=== PATIENT | male | born 1960 | race Caucasian/White ===

== ENCOUNTER 2020-03-07 10:41 | Emergency (ER) | payer BC ==
[~2020-03-07] VITALS: Ht 165.1 cm; Wt 100.2 kg
[~2020-03-07 10:41] MED LIST: DOXYCYCLINE 10100 MG PO; KEFLEX500 MG PO; LISINOPRIL10 MG PO; TRUBIOTICS
[2020-03-07] MEDS ORDERED: LIPITOR 20 MG T20 M1 PO (10:57)
[2020-03-07] MEDS ORDERED: LEVO-T25 MCG PO (10:58)
[2020-03-07 11:15] LABS: ABSOLUTE BASOPHILS 0.1 thou/uL (0.0-0.2); ABSOLUTE EOSINOPHILS 0.1 thou/uL (0.0-0.7); ABSOLUTE LYMPHOCYTES 2.7 thou/uL (0.8-5.3); ABSOLUTE MONOCYTES 0.4 thou/uL (0.0-1.2); ABSOLUTE NEUTROPHILS 4.7 thou/uL (1.6-8.1); EOSINOPHILS 1.9 %; HEMATOCRIT 43.5 % (42.0-52.0); HEMOGLOBIN 15.8 gm/dL (14.0-18.0); LYMPHOCYTES 33.6 %; MCH 33.1 pg (26.0-34.0); MCHC 36.4 g/dL (28.0-37.0); MCV 90.8 fL (80.0-100.0); MONOCYTES 4.4 %; MPV 10.5 fl. (7.2-11.1); NUCLEATED RBCS 0 /100WBC; PLATELET COUNT* 212 thou/uL (150-400); POLYS 59.1 %; RBC 4.79 mil/uL (4.50-6.00); RDW-CV 13.4 % (10.5-14.5)
[2020-03-07 12:03] LABS: CALCIUM 9.5 mg/dL (8.5-10.1); CREATININE 1.6 mg/dL (0.6-1.3); POTASSIUM 4.2 mmol/L (3.5-5.1)
[2020-03-07 12:16] LABS: TOTAL BILIRUBIN 0.8 mg/dL (<0.1-1.0); TOTAL PROTEIN 8.1 g/dL (6.4-8.2)
[2020-03-07 12:54] LABS: URINE BILIRUBIN NEGATIVE (Negative); URINE BLOOD TRACE (Negative); URINE CLARITY CLEAR; URINE COLOR YELLOW; URINE GLUCOSE-RANDOM 3+ (Negative); URINE KETONES 1+ (Negative); URINE LEUKOCYTES-REFLEX NEGATIVE (Negative); URINE NITRITE-REFLEX NEGATIVE (Negative); URINE PROTEIN 1+ (Negative); URINE SPECIFIC GRAVITY 1.015 (1.005-1.030); URINE UROBILINOGEN 0.2 E.U./dl (0.2-1.0)
[2020-03-07] MEDS ORDERED: METFORMIN HCL500 MG PO (12:57)
[2020-03-07 13:04] VITALS: BP 115/76
--- NOTE | 2020-03-08 16:21 | EKG ---
[place] [address] ELECTROCARDIOGRAM REPORT Name: MAIA CASTELAN Room: [facility]#: [id number] Admission: 03/07/20 Attend Phys: Discharge: 03/07/20 Date of : 64 Date of Service: 03/07/20 1136 Report #: [id number] THIS REPORT FOR: //name// [facility] ED Test Date: 2020-03-07 Test Time: 11:36:02 Pat Name: MAIA CASTELAN Department: Room: Gender: Inspector Air Carrier: JONO : 1960 Requested By: Ina [place] Order Number: [id number] MD: Vance Hartmann Measurements Intervals [place] Rate: 74 P: 49 [place]: 159 QRS: 2 QRSD: 104 T: 30 QT: 487 QTc: 541 Interpretive Statements Sinus rhythm Probable left atrial enlargement Abnormal R-wave progression, early transition Prolonged QT interval Compared to ECG 11/22/2016 22:53:40 Prolonged QT interval now present Sinus bradycardia no longer present ST (T wave) deviation no longer present Electronically Signed On 03-08-2020 16:21:16 CDT by Vance Hartmann [email or web address] <ELECTRONICALLY SIGNED> By: Vance Hartmann MD, [facility] 03/08/20 1621 1136 1136 Vance Hartmann MD, [facility] /EPI
== END 2020-03-07 13:05 | disposition home or self-care (01) ==
LOC: M.ERS 10:41
PROVIDERS: Physician Assistant
DX: E11.65 Type 2 diabetes mellitus with hyperglycemia (principal)

== ENCOUNTER 2021-06-28 10:44 | Emergency (ER) | payer OTHER ==
[~2021-06-28] VITALS: Ht 165.1 cm; Wt 102.1 kg
[~2021-06-28 10:44] MED LIST changes: +ALLOPURINOL 10100 M1 PO; +FISH OIL 1,001000 M3 PO; +FLONASE 0.05%50 MCG NASAL; +LEVO-T25 MCG PO; +LIPITOR 20 MG T20 M1 PO; +METFORMIN HCL500 M3 PO; +METFORMIN HCL500 MG PO; +PROAIR HFA8.5 GM INH; +SUPER THERAVIT1 EACH PO; +TERBINAFINE HC250 MG PO; +ZYRTEC10 MG PO
[2021-06-28 10:49] VITALS: BP 158/92
[2021-06-28 11:14] LABS: ABSOLUTE BASOPHILS 0.1 thou/uL (0.0-0.2); ABSOLUTE EOSINOPHILS 0.3 thou/uL (0.0-0.7); ABSOLUTE LYMPHOCYTES 2.7 thou/uL (0.8-5.3); ABSOLUTE MONOCYTES 0.4 thou/uL (0.0-1.2); ABSOLUTE NEUTROPHILS 4.4 thou/uL (1.6-8.1); EOSINOPHILS 3.9 %; HEMATOCRIT 42.3 % (42.0-52.0); HEMOGLOBIN 14.6 gm/dL (14.0-18.0); LYMPHOCYTES 34.4 %; MCH 31.4 pg (26.0-34.0); MCHC 34.4 g/dL (28.0-37.0); MONOCYTES 5.1 %; MPV 8.8 fl. (7.2-11.1); NUCLEATED RBCS 0 /100WBC; PLATELET COUNT* 223 thou/uL (150-400); POLYS 55.6 %; RBC 4.65 mil/uL (4.50-6.00); RDW-CV 13.9 % (10.5-14.5); WBC 7.9 thou/uL (4.0-11.0)
[2021-06-28 11:37] LABS: CALCIUM 8.9 mg/dL (8.5-10.1); CREATININE 1.3 mg/dL (0.6-1.3)
[2021-06-28 11:41] LABS: ALBUMIN 3.8 g/dL (3.4-5.0); TOTAL BILIRUBIN 0.6 mg/dL (<0.1-1.0); TOTAL PROTEIN 7.4 g/dL (6.4-8.2)
[2021-06-28] MEDS ORDERED: ACYCLOVIR 400400 MG PO (11:59)
[2021-06-28] MEDS ORDERED: PREDNISONE 20 M20 M1 PO (11:59)
--- NOTE | 2021-06-28 14:34 | EKG ---
[place] [address] ELECTROCARDIOGRAM REPORT Name: MAIA CASTELAN Room: [facility]#: [id number] Admission: 06/28/21 Attend Phys: Discharge: Date of : 64 Date of Service: 06/28/21 1104 Report #: [id number] THIS REPORT FOR: //name// [facility] ED Test Date: 2021-06-28 Test Time: 11:04:57 Pat Name: MAIA CASTELAN Department: Room: Gender: Insole Channeler: : 1960 Requested By: Osmar Alba Order Number: [id number] MD: Doc Trinidad Measurements Intervals [place] Rate: 68 P: 47 [place]: 166 QRS: 5 QRSD: 97 T: 25 QT: 382 QTc: 407 Interpretive Statements Sinus rhythm Compared to ECG 03/07/2020 11:36:02 Prolonged QT interval no longer present Electronically Signed On 06-28-2021 14:33:37 SENIOR DATABASE ADMINISTRATOR by Doc Trinidad [email or web address] <ELECTRONICALLY SIGNED> By: Doc Trinidad MD, [facility] 06/28/21 1433 1104 03 Doc Trinidad MD, [facility] /EPI
== END 2021-06-28 12:15 | disposition home or self-care (01) ==
LOC: M.ERS 10:44
PROVIDERS: Family Medicine
DX: G51.0 Bell's palsy (principal); E11.9 Type 2 diabetes mellitus without complications; Z79.899 Other long term (current) drug therapy

== ENCOUNTER 2021-07-21 06:07 | Emergency (ER) | payer OTHER ==
[~2021-07-21] VITALS: Ht 167.6 cm; Wt 101.2 kg
[~2021-07-21 06:07] MED LIST changes: +ACYCLOVIR 400400 MG PO; +PREDNISONE 20 M20 M1 PO
[2021-07-21 06:22] LABS: URINE BILIRUBIN NEGATIVE (Negative); URINE BLOOD NEGATIVE (Negative); URINE CLARITY CLEAR; URINE COLOR YELLOW; URINE GLUCOSE-RANDOM NEGATIVE (Negative); URINE KETONES NEGATIVE (Negative); URINE LEUKOCYTES-REFLEX NEGATIVE (Negative); URINE NITRITE-REFLEX NEGATIVE (Negative); URINE PROTEIN NEGATIVE (Negative); URINE SPECIFIC GRAVITY 1.015 (1.005-1.030); URINE UROBILINOGEN 0.2 E.U./dl (0.2-1.0)
[2021-07-21 06:50] LABS: ABSOLUTE BASOPHILS 0.1 thou/uL (0.0-0.2); ABSOLUTE EOSINOPHILS 0.2 thou/uL (0.0-0.7); ABSOLUTE LYMPHOCYTES 1.9 thou/uL (0.8-5.3); ABSOLUTE MONOCYTES 0.6 thou/uL (0.0-1.2); ABSOLUTE NEUTROPHILS 6.2 thou/uL (1.6-8.1); BASOPHILS 1.2 %; EOSINOPHILS 2.1 %; HEMATOCRIT 39.4 % (42.0-52.0); HEMOGLOBIN 13.6 gm/dL (14.0-18.0); LYMPHOCYTES 21.3 %; MCH 31.4 pg (26.0-34.0); MCHC 34.5 g/dL (28.0-37.0); MCV 91.1 fL (80.0-100.0); MONOCYTES 6.6 %; NUCLEATED RBCS 0 /100WBC; PLATELET COUNT* 214 thou/uL (150-400); POLYS 68.8 %; RBC 4.33 mil/uL (4.50-6.00); RDW-CV 13.7 % (10.5-14.5)
[2021-07-21 06:59] LABS: CALCIUM 9.2 mg/dL (8.5-10.1); CREATININE 1.3 mg/dL (0.6-1.3); POTASSIUM 3.9 mmol/L (3.5-5.1)
[2021-07-21 07:04] LABS: ALBUMIN 3.5 g/dL (3.4-5.0); TOTAL BILIRUBIN 0.2 mg/dL (<0.1-1.0)
[2021-07-21 07:11] LABS: INFLUENZA A ANTIGEN Negative (Negative); INFLUENZA B ANTIGEN Negative (Negative)
[2021-07-21] MEDS ORDERED: VENTOLIN HFA 1818 GM INH (07:24)
[2021-07-21] MEDS ORDERED: HYDROCODON-ACE1 EAC7 PO (07:24)
[2021-07-21] MEDS ORDERED: ZOFRAN ODT4 MG DISSOLVE (07:24)
[2021-07-21] MEDS ORDERED: AUGMENTIN 875-1 EACH PO (07:24)
[2021-07-21 07:51] VITALS: BP 120/70
== END 2021-07-21 07:51 | disposition home or self-care (01) ==
LOC: M.ERS 06:07
PROVIDERS: Emergency Medicine
DX: J18.9 Pneumonia, unspecified organism (principal); Z20.822 Contact with and (suspected) exposure to COVID-19; R10.9 Unspecified abdominal pain; R11.0 Nausea; E11.9 Type 2 diabetes mellitus without complications; Z90.5 Acquired absence of kidney; Z79.899 Other long term (current) drug therapy